=== PATIENT | male | born 1995 | race Asian ===

== ENCOUNTER 2018-12-15 14:27 | Outpatient (CLI) | payer OTHER ==
--- NOTE | 2018-12-15 15:30 | RAD ---
LEFT FINGER THREE VIEWS: 12/15/18 HISTORY: Left index finger pain in the region of the MCP. FINDINGS: No bony abnormality is seen. Joint space are maintained. No radiopaque foreign body is seen. IMPRESSION: Normal exam. POS: [facility]
== END 2018-12-15 14:28 | disposition home or self-care (01) ==
LOC: BICRAD 14:27
PROVIDERS: ATTEND Family Medicine
DX: M79.645 Pain in left finger(s) (principal)